=== PATIENT | female | born 1985 | race American Indian/Alaskan Native ===

== ENCOUNTER 2020-09-26 12:29 | Observation (INO) | payer SELFPAY ==
[2020-09-26] MEDS ORDERED: ACETAMINOPHEN 325 MG/10.15 ML ORAL LIQD UNIT DOSE ONE (13:30)
[2020-09-26] MEDS ORDERED: ACETAMINOPHEN 325 MG TAB PO ONE (13:31)
[2020-09-26] MEDS ORDERED: SODIUM CHLORIDE 0.9% 1000 ML 1,000 ML IV ONE ×2 (13:32→17:41)
--- NOTE | 2020-09-26 13:32 | Event Note ---
ED Screening Note Date of service: 09/26/20 Time: 13:31 ED Screening Note: Patient complains of body aches, fever, and shortness of breath-diagnosed with Covid 7 days ago Fever of 101.6 noted with tachycardia at 147 noted This initial assessment/diagnostic orders/clinical plan/treatment(s) is/are subject to change based on patients health status, clinical progression and re- assessment by fellow clinical providers in the ED. Further treatment and workup at subsequent clinical providers discretion. Patient/guardian urged not to elope from the ED as their condition may be serious if not clinically assessed and managed. Initial orders include: Labs Chest x-ray Tylenol
--- NOTE | 2020-09-26 14:27 | XRay Report ---
CHEST 2 VIEWS INDICATION / CLINICAL INFORMATION: Chest pain and shortness of breath. COVID positive. COMPARISON: None available. FINDINGS: SUPPORT DEVICES: None. HEART / MEDIASTINUM: The heart size and pulmonary vasculature are normal. LUNGS / PLEURA: There is moderate patchy subsegmental parenchymal disease in both lower lung zones. L heriberto volumes are mildly decreased. The upper lung zones are clear. No evidence of pleural effusion. No pneumothorax. ADDITIONAL FINDINGS: No significant additional findings. IMPRESSION: Moderate patchy subsegmental parenchymal disease in both lower lung zones may be related to subsegmental atelectasis or pneumonia. Signer Name: Jus Manuel MD Signed: 09/26/2020 2:23 PM Workstation Name: [id number]
[2020-09-26 14:32] LABS: Basophils % (Auto) 0.2 % (0.0-1.8); Hemoglobin 14.7 gm/dl (10.1-14.3); Lymphocytes # (Auto) 1.4 K/mm3 (1.2-5.4); Lymphocytes % (Auto) 20.4 % (13.4-35.0); Monocytes # (Auto) 0.4 K/mm3 (0.0-0.8); Monocytes % (Auto) 6.4 % (0.0-7.3)
[2020-09-26 14:42] LABS: Hematocrit 42.8 % (30.3-42.9); Mean Corpuscular HGB Conc 34 % (30-34); Mean Corpuscular Volume 90 fl (79-97); Platelet Count 164 K/mm3 (140-440); Red Blood Count 4.78 M/mm3 (3.65-5.03); Red Cell Distribution Width 11.7 % (13.2-15.2)
[2020-09-26 14:50] LABS: Alanine Aminotransferase 76 units/L (7-56); BUN/Creatinine Ratio 11; Blood Urea Nitrogen 10 mg/dL (7-17); Calcium 8.6 mg/dL (8.4-10.2); Hemolysis Index 5
[2020-09-26] MEDS ORDERED: AZITHROMYCIN 500 MG in SODIUM CHLORIDE 0.9% 250ML 250 ML IV ONE (17:16)
[2020-09-26] MEDS ORDERED: methylPREDNISolone Sod Succinate 125 MG/2 ML INJ IV ONE (17:16)
[2020-09-26] MEDS ORDERED: cefTRIAXone/NS 1 GM/50 ML 1 GM/50 ML BAG IV ONE (17:17)
--- NOTE | 2020-09-26 17:24 | Emergency Department Report ---
HPI - General Chief Complaint: Dyspnea/Respdistress Time Seen by Provider: 09/26/20 13:30 - HPI HPI: This is a 35-year-old -Thai female presents to the emergency department with a complaint of shortness of breath and a recent positive Covid test. 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 Initially the patient complained of some nausea with vomiting, chills, body aches and fatigue. She did not think that it was Covid at first but went to get tested anyways. The patient began having shortness of breath starting yesterday that worsens with exertion. She has also had a few days of high fevers. She denies any past medical history. She denies any tobacco or illicit drug use. ED Past Medical Hx - Social History Smoking Status: Never Smoker Substance Use Type: None ED Review of Systems ROS: Stated complaint: SOB Other details as noted in HPI Comment: All other systems reviewed and negative Constitutional: chills, fever Eyes: denies: eye pain, vision change ENT: denies: ear pain, throat pain Respiratory: shortness of breath, SOB with exertion Cardiovascular: denies: chest pain, edema Gastrointestinal: nausea, vomiting Genitourinary: denies: dysuria, discharge Musculoskeletal: myalgia. denies: joint swelling Skin: denies: rash, lesions Neurological: denies: numbness, paresthesias Physical Exam - Physical Exam Vital Signs: Vital Signs 09/26/20 13:26 Temperature 101.6 F H Pulse Rate 147 H Respiratory 26 H Rate Blood Pressure 133/87 O2 Sat by Pulse 95 Oximetry Physical Exam: GENERAL: The patient is well-developed well-nourished. HENT: Normocephalic. Atraumatic. Patient has moist mucous membranes. EYES: Extraocular motions are intact. NECK: Supple. Trachea is midline. CHEST/LUNGS: Rhonchi heard throughout the chest. There is some tachypnea with accessory muscle use. HEART/CARDIOVASCULAR: Regular. There is moderate tachycardia. There is no murmur. ABDOMEN: Abdomen is soft, nontender. Patient has normal bowel sounds. There is no abdominal distention. SKIN: Skin is warm and dry. NEURO: The patient is awake, alert, and oriented. The patient is cooperative. The patient has no focal neurologic deficits. Normal speech. MUSCULOSKELETAL: There is no tenderness or deformity. There is no limitation range of motion. ED Course Vital Signs 09/26/20 13:26 Temperature 101.6 F H Pulse Rate 147 H Respiratory 26 H Rate Blood Pressure 133/87 O2 Sat by Pulse 95 Oximetry ED Medical Decision Making - Lab Data Result diagrams: 09/26/20 14:08 09/26/20 14:08 - Radiology Data Radiology results: image reviewed interpreted by me: Chest x-ray shows bilateral patchy infiltrates to the mid to lower lung hinkle consistent with an atypical pneumonia. No pneumothorax. No rib fractures or bony abnormalities. - Medical Decision Making This patient presents to the emergency department with a 1 to 2-day history of shortness of breath after finding out she was Covid positive yesterday. Previous to this patient had some nausea without vomiting, chills, body aches, fatigue. Chest x-ray shows bilateral patchy infiltrates concerning for an atypical pneumonia and consistent with Covid. Patient's labs shows some mild hyperglycemia without signs of DKA. The patient also has some mild transaminitis. No leukocytosis. Patient was given IV fluid resuscitation, Solu-Medrol and IV antibiotics. The patient was taken off the supplemental oxygen and ambulated 200 feet before her oxygen saturation dropped down to 90% and the heart rate went up to 120 bpm. For this reason, the patient will be admitted to the hospital for COVID-19, hypoxia, bilateral pneumonia secondary to COVID-19. Further inflammatory markers and a coronavirus PCR test have been ordered. The patient will be pres ented to the nighttime hospitalist for admission. Critical Care Time: No Critical care attestation.: If time is entered above; I have spent that time in minutes in the direct care of this critically ill patient, excluding procedure time. ED Disposition Clinical Impression: COVID-19, Pneumonia due to COVID-19 virus, Hypoxemia Disposition: OP ADMIT IP TO THIS HOSP Is pt being admited?: Yes Condition: Fair Instructions: Bacterial Pneumonia (ED) Time of Disposition: 19:51
[2020-09-26 20:26] LABS: C-Reactive Protein 21.4 mg/dL (0.00-1.30)
[2020-09-27] MEDS ORDERED: ONDANSETRON 4 MG/2 ML INJ IV PRN (02:05)
[2020-09-27] MEDS ORDERED: HYDROmorphone 1 MG/1 ML INJ IV PRN (02:05)
[2020-09-27] MEDS ORDERED: oxyCODONE /ACETAMINOPHEN 5-325MG TAB PO PRN (02:05)
[2020-09-27] MEDS ORDERED: ACETAMINOPHEN 325 MG TAB PO PRN (02:05)
--- NOTE | 2020-09-27 02:23 | History and Physical Report ---
History of Present Illness Date of examination: 09/27/20 Date of admission: 09/27/20 00:27 Chief complaint: Shortness of breath for 2 days History of present illness: 35-year-old black female with no significant past medical history comes in for shortness of breath for 2 to 3 days. Patient apparently tested +3 days ago and an outside Covid testing center. Patient has some nausea vomiting chills body aches and fatigue. Also shortness of breath on walking. Shortness of breath since yesterday. Cough present. No fevers. No anosmia. Exposure to coronavirus present. In the emergency room patient saturations were dropping down to mid 80s on making her walk. Past Medical Hx None Past surgical history None Family history Htn - Social History Smoking Status: Never Smoker Substance Use Type: None Review of Systems ROS: Stated complaint: SOB Other details as noted in HPI Comment: All other systems reviewed and negative Constitutional: chills, fever Eyes: denies: eye pain, vision change ENT: denies: ear pain, throat pain Respiratory: shortness of breath, SOB with exertion Cardiovascular: denies: chest pain, edema Gastrointestinal: nausea, vomiting Genitourinary: denies: dysuria, discharge Musculoskeletal: myalgia. denies: joint swelling Skin: denies: rash, lesions Neurological: denies: numbness, paresthesias Medications and Allergies Allergies Allergy/AdvReac Type Severity Reaction Status Date / Time No Known Allergies Allergy Unverified 09/26/20 13:30 Active Meds: Active Medications Acetaminophen (Acetaminophen 325 Mg Tab) 650 mg PO Q4H PRN PRN Reason: Pain MILD(1-3)/Fever >100.5/FRAUSTO Famotidine (Famotidine 20 Mg Tab) 20 mg PO BID [facility] Hydromorphone HCl (Hydromorphone 1 Mg/1 Ml Inj) 0.5 mg IV Q3H PRN PRN Reason: Pain , Severe (7-10) Ondansetron HCl (Ondansetron 4 Mg/2 Ml Inj) 4 mg IV Q8H PRN PRN Reason: Nausea And Vomiting Oxycodone/Acetaminophen (Oxycodone /Acetaminophen 5-325mg Tab) 1 tab PO Q6H PRN PRN Reason: Pain, Moderate (4-6) Sodium Chloride (Sodium Chloride 0.9% 10 Ml Flush Syringe) 10 ml IV BID [facility] Sodium Chloride (Sodium Chloride 0.9% 10 Ml Flush Syringe) 10 ml IV PRN PRN PRN Reason: LINE FLUSH Exam - Constitutional Vitals: Temp Pulse Resp BP Pulse Ox 99.1 F 104 H 20 140/97 95 09/26/20 19:14 09/26/20 19:14 09/26/20 19:14 09/26/20 19:14 09/26/20 19:14 General appearance: Present: no acute distress, well-nourished - EENT Eyes: Present: PERRL ENT: hearing intact, clear oral mucosa - Neck Neck: Present: supple, normal ROM - Respiratory Respiratory effort: normal Respiratory: bilateral: CTA - Cardiovascular Heart rate: 78 Rhythm: regular Heart Sounds: Present: S1 & S2. Absent: rub, click - Extremities Extremities: pulses symmetrical, No edema Peripheral Pulses: within normal limits - Abdominal General gastrointestinal: Present: soft, non-tender, non-distended, normal bowel sounds Female genitourinary: Present: normal - Integumentary Integumentary: Present: clear, warm, dry - Musculoskeletal Musculoskeletal: gait normal, strength equal bilaterally - Psychiatric Psychiatric: appropriate mood/affect, intact judgment & insight - Neurologic Neurologic: CNII-XII intact, moves all extremities - Allied Health Allied health notes reviewed: nursing, case management Results - Labs CBC & Chem 7: 09/26/20 14:08 09/26/20 14:08 Labs: Laboratory Last Values WBC 6.8 K/mm3 (4.5-11.0) 09/26/20 14:08 RBC 4.78 M/mm3 (3.65-5.03) 09/26/20 14:08 Hgb 14.7 gm/dl (10.1-14.3) H 09/26/20 14:08 Hct 42.8 % (30.3-42.9) 09/26/20 14:08 MCV 90 fl (79-97) 09/26/20 14:08 MCH 31 pg (28-32) 09/26/20 14:08 MCHC 34 % (30-34) 09/26/20 14:08 RDW 11.7 % (13.2-15.2) L 09/26/20 14:08 Plt Count 164 K/mm3 (140-440) 09/26/20 14:08 Lymph % (Auto) 20.4 % (13.4-35.0) 09/26/20 14:08 [place] % (Auto) 6.4 % (0.0-7.3) 09/26/20 14:08 Eos % (Auto) 0.0 % (0.0-4.3) 09/26/20 14:08 Baso % (Auto) 0.2 % (0.0-1.8) 09/26/20 14:08 Lymph # (Auto) 1.4 K/mm3 (1.2-5.4) 09/26/20 14:08 [place] # (Auto) 0.4 K/mm3 (0.0-0.8) 09/26/20 14:08 Eos # (Auto) 0.0 K/mm3 (0.0-0.4) 09/26/20 14:08 Baso # (Auto) 0.0 K/mm3 (0.0-0.1) 09/26/20 14:08 Seg Neutrophils % 73.0 % (40.0-70.0) H 09/26/20 14:08 Seg Neutrophils # 5.0 K/mm3 (1.8-7.7) 09/26/20 14:08 D-Dimer 241.31 ng/mlDDU (0-234) H 09/26/20 19:38 Sodium 130 mmol/L (137-145) L 09/26/20 14:08 Potassium 4.6 mmol/L (3.6-5.0) 09/26/20 14:08 Chloride 95.3 mmol/L (98-107) L 09/26/20 14:08 Carbon Dioxide 22 mmol/L (22-30) 09/26/20 14:08 Anion Gap 17 mmol/L 09/26/20 14:08 BUN 10 mg/dL (7-17) 09/26/20 14:08 Creatinine 0.9 mg/dL (0.6-1.2) 09/26/20 14:08 Estimated GFR > 60 ml/min 09/26/20 14:08 BUN/Creatinine Ratio 11 % 09/26/20 14:08 Glucose 235 mg/dL (65-100) H 09/26/20 14:08 Lactic Acid 2.20 mmol/L (0.7-2.0) H* 09/26/20 15:50 Calcium 8.6 mg/dL (8.4-10.2) 09/26/20 14:08 Ferritin 519.7 ng/mL (10.0-200.0) H 09/26/20 19:38 Total Bilirubin 0.60 mg/dL (0.1-1.2) 09/26/20 14:08 AST 94 units/L (5-40) H 09/26/20 14:08 ALT 76 units/L (7-56) H 09/26/20 14:08 Alkaline Phosphatase 66 units/L (35-129) 09/26/20 14:08 Lactate Dehydrogenase 529 units/L (91-180) H 09/26/20 19:38 C-Reactive Protein 21.40 mg/dL (0.00-1.30) H 09/26/20 19:38 Total Protein 8.0 g/dL (6.3-8.2) 09/26/20 14:08 Albumin 3.0 g/dL (3.9-5) L 09/26/20 14:08 Albumin/Globulin Ratio 0.6 % 09/26/20 14:08 - Imaging and Cardiology Chest x-ray: report reviewed Imaging and Cardiology: Chest x-ray LUNGS / PLEURA: There is moderate patchy subsegmental parenchymal disease in both lower lung zones. Lung volumes are mildly decreased. The upper lung zones are clear. No evidence of pleural effusion. No pneumothorax. ADDITIONAL FINDINGS: No significant additional findings. IMPRESSION: Moderate patchy subsegmental parenchymal disease in both lower lung zones may be related to subsegmental atelectasis or pneumonia. Assessment and Plan Advance Directives: Yes (Full code) Plan of care discussed with patient/family: Yes - Patient Problems (1) Acute respiratory failure with hypoxia Current Visit: Yes Status: Acute Plan to address problem: Oxygen supplementation as needed BiPAP if necessary Respiratory isolation (2) Bilateral pneumonia Current Visit: Yes Status: Acute Plan to address problem: Patient started on ceftriaxone and azithromycin (3) Pneumonia due to COVID-19 virus Current Visit: Yes Status: Acute Plan to address problem: Covid protocol IV dexamethasone Vitamin D Vitamin C Zinc ID consult Ambulatory oxygen saturation levels every day\ Will defer regarding remdesivir to ID (4) Elevated lactic acid level Current Visit: Yes Status: Acute Plan to address problem: Progress sepsis We will monitor lactic acid level (5) Hyponatremia Current Visit: Yes Status: Acute Plan to address problem: Patient given IV normal saline in the emergency room Will avoid any IV fluids for now Recheck BMP (6) Hyperglycemia Current Visit: Yes Status: Acute Plan to address problem: Patient does not have a history of diabetes Check hemoglobin A1c Accu-Cheks and coverage Patient may need to be hyper hypoglycemics at the time of discharge (7) Malnutrition Current Visit: Yes Status: Acute Plan to address problem: Dietary supplements (8) DVT prophylaxis Current Visit: Yes Status: Acute Plan to address problem: On Lovenox and GI prophylaxis
[2020-09-27] MEDS: dexAMETHasone 4 MG/ML VIAL IV SCH ×2 (05:25→11:12)
[2020-09-27] MEDS: ASCORBIC ACID 500 MG TAB PO SCH ×3 (05:26→21:29)
[2020-09-27] MEDS: ZINC SULFATE 220 MG CAP PO SCH ×3 (05:26→21:29)
[2020-09-27] MEDS: INSULIN LISPRO 100 UNIT/ML VIAL 3 mL SUB-Q SCH ×4 (08:00→23:54)
--- NOTE | 2020-09-27 09:58 | Progress Note ---
Assessment and Plan Assessment and plan: Acute respiratory failure with hypoxia Oxygen supplementation as needed BiPAP if necessary Respiratory isolation Bilateral pneumonia Patient started on ceftriaxone and azithromycin Pneumonia due to COVID-19 virus Covid protocol IV dexamethasone Vitamin D Vitamin C Zinc ID consulted Ambulatory oxygen saturation levels daily Will defer regarding remdesivir to ID Elevated lactic acid level Etiology secondary to sepsis We will monitor lactic acid level Hyponatremia Patient given IV normal saline in the emergency room Will avoid any IV fluids for now Recheck BMP Hyperglycemia Patient does not have a history of diabetes Check hemoglobin A1c Accu-Cheks and coverage Malnutrition Dietary supplements DVT prophylaxis On Lovenox and GI prophylaxis 09/27/2020. Follow-up ID recommendations. Continue IV dexamethasone. Continue Covid 19 isolation protocols. Continue Lovenox for anticoagulation. Follow-up inflammatory markers. History Interval history: no new issues Hospitalist Physical - Constitutional Vitals: Temp Pulse Resp BP Pulse Ox 98.4 F 102 H 18 130/76 91 09/27/20 06:30 09/27/20 06:30 09/27/20 06:30 09/27/20 06:30 09/27/20 06:30 General appearance: Present: no acute distress, well-nourished - EENT Eyes: Present: PERRL, EOM intact ENT: hearing intact, clear oral mucosa, dentition normal - Neck Neck: Present: supple, normal ROM - Respiratory Respiratory effort: normal Respiratory: bilateral: CTA - Cardiovascular Rhythm: regular Heart Sounds: Present: S1 & S2. Absent: gallop, rub - Extremities Extremities: no ischemia, No edema, Full ROM - Abdominal General gastrointestinal: soft, non-tender, non-distended, normal bowel sounds - Integumentary Integumentary: Present: clear, warm, dry - Neurologic Neurologic: CNII-XII intact, moves all extremities Results - Labs CBC & Chem 7: 09/26/20 14:08 09/26/20 14:08 Labs: Laboratory Last Values WBC 6.8 K/mm3 (4.5-11.0) 09/26/20 14:08 RBC 4.78 M/mm3 (3.65-5.03) 09/26/20 14:08 Hgb 14.7 gm/dl (10.1-14.3) H 09/26/20 14:08 Hct 42.8 % (30.3-42.9) 09/26/20 14:08 MCV 90 fl (79-97) 09/26/20 14:08 MCH 31 pg (28-32) 09/26/20 14:08 MCHC 34 % (30-34) 09/26/20 14:08 RDW 11.7 % (13.2-15.2) L 09/26/20 14:08 Plt Count 164 K/mm3 (140-440) 09/26/20 14:08 Lymph % (Auto) 20.4 % (13.4-35.0) 09/26/20 14:08 [place] % (Auto) 6.4 % (0.0-7.3) 09/26/20 14:08 Eos % (Auto) 0.0 % (0.0-4.3) 09/26/20 14:08 Baso % (Auto) 0.2 % (0.0-1.8) 09/26/20 14:08 Lymph # (Auto) 1.4 K/mm3 (1.2-5.4) 09/26/20 14:08 [place] # (Auto) 0.4 K/mm3 (0.0-0.8) 09/26/20 14:08 Eos # (Auto) 0.0 K/mm3 (0.0-0.4) 09/26/20 14:08 Baso # (Auto) 0.0 K/mm3 (0.0-0.1) 09/26/20 14:08 Seg Neutrophils % 73.0 % (40.0-70.0) H 09/26/20 14:08 Seg Neutrophils # 5.0 K/mm3 (1.8-7.7) 09/26/20 14:08 D-Dimer 241.31 ng/mlDDU (0-234) H 09/26/20 19:38 Sodium 130 mmol/L (137-145) L 09/26/20 14:08 Potassium 4.6 mmol/L (3.6-5.0) 09/26/20 14:08 Chloride 95.3 mmol/L (98-107) L 09/26/20 14:08 Carbon Dioxide 22 mmol/L (22-30) 09/26/20 14:08 Anion Gap 17 mmol/L 09/26/20 14:08 BUN 10 mg/dL (7-17) 09/26/20 14:08 Creatinine 0.9 mg/dL (0.6-1.2) 09/26/20 14:08 Estimated GFR > 60 ml/min 09/26/20 14:08 BUN/Creatinine Ratio 11 % 09/26/20 14:08 Glucose 235 mg/dL (65-100) H 09/26/20 14:08 Lactic Acid 2.20 mmol/L (0.7-2.0) H* 09/26/20 15:50 Calcium 8.6 mg/dL (8.4-10.2) 09/26/20 14:08 Ferritin 519.7 ng/mL (10.0-200.0) H 09/26/20 19:38 Total Bilirubin 0.60 mg/dL (0.1-1.2) 09/26/20 14:08 AST 94 units/L (5-40) H 09/26/20 14:08 ALT 76 units/L (7-56) H 09/26/20 14:08 Alkaline Phosphatase 66 units/L (35-129) 09/26/20 14:08 Lactate Dehydrogenase 529 units/L (91-180) H 09/26/20 19:38 C-Reactive Protein 21.40 mg/dL (0.00-1.30) H 09/26/20 19:38 Total Protein 8.0 g/dL (6.3-8.2) 09/26/20 14:08 Albumin 3.0 g/dL (3.9-5) L 09/26/20 14:08 Albumin/Globulin Ratio 0.6 % 09/26/20 14:08 Active Medications - Current Medications Current Medications: Generic Name Dose Route Start Last Admin Trade Name Freq PRN Reason Stop Dose Admin Acetaminophen 650 mg 09/27/20 02:05 Acetaminophen 325 Mg Tab PO Q4H PRN Pain MILD(1-3)/Fever >100.5/FRAUSTO Ascorbic Acid 1,000 mg 09/27/20 03:00 09/27/20 05:26 Ascorbic Acid 500 Mg Tab PO 1,000 mg BID ELDA Administration Cholecalciferol 5,000 unit 09/27/20 10:00 Cholecalciferol (Vit D3) 5,000 Unit Tab PO DAILY ELDA Dexamethasone 8 mg 09/27/20 03:00 09/27/20 05:25 Dexamethasone 4 Mg/Ml Vial IV 8 mg Q24HR ELDA Administration Enoxaparin Sodium 40 mg 09/27/20 22:00 Enoxaparin 40 Mg/0.4 Ml Inj SUB-Q QDAY@2200 [facility] Protocol Famotidine 20 mg 09/27/20 10:00 Famotidine 20 Mg Tab PO BID [facility] Hydromorphone HCl 0.5 mg 09/27/20 02:05 Hydromorphone 1 Mg/1 Ml Inj IV Q3H PRN Pain , Severe (7-10) Azithromycin 500 mg/ Sodium 250 mls @ 250 mls/hr 09/27/20 10:00 Chloride IV Q24HR [facility] Protocol Ceftriaxone Sodium 2 gm in 100 mls @ 200 mls/hr 09/27/20 10:00 Rocephin/Ns 2 Gm/100 Ml IV Q24HR [facility] Protocol Insulin Human Lispro 0 unit 09/27/20 07:30 Insulin Lispro 100 Unit/Ml Vial 3 Ml SUB-Q ACHS [facility] Protocol Ondansetron HCl 4 mg 09/27/20 02:05 Ondansetron 4 Mg/2 Ml Inj IV Q8H PRN Nausea And Vomiting Oxycodone/Acetaminophen 1 tab 09/27/20 02:05 Oxycodone /Acetaminophen 5-325mg Tab PO Q6H PRN Pain, Moderate (4-6) Sodium Chloride 10 ml 09/27/20 10:00 Sodium Chloride 0.9% 10 Ml Flush Syringe IV BID [facility]DA Sodium Chloride 10 ml 09/27/20 02:05 Sodium Chloride 0.9% 10 Ml Flush Syringe IV PRN PRN LINE FLUSH Zinc Sulfate 220 mg 09/27/20 03:00 09/27/20 05:26 Zinc Sulfate 220 Mg Cap PO 220 mg BID ELDA Administration
[2020-09-27 10:52] LABS: C-Reactive Protein 15.6 mg/dL (0.00-1.30)
[2020-09-27] MEDS: AZITHROMYCIN 500 MG in SODIUM CHLORIDE 0.9% 250ML 250 ML IV SCH (11:08)
[2020-09-27] MEDS: CHOLECALCIFEROL (VIT D3) 5,000 UNIT TAB PO SCH (11:09)
[2020-09-27] MEDS: FAMOTIDINE 20 MG TAB PO SCH ×2 (11:09→21:30)
[2020-09-27] MEDS: cefTRIAXone/NS 2 GM/100 ML 2 GM/100 ML BAG IV SCH (11:09)
[2020-09-27] MEDS: ENOXAPARIN 40 MG/0.4 ML INJ SUB-Q SCH ×2 (21:30→21:35)
--- NOTE | 2020-09-28 08:53 | Progress Note ---
Assessment and Plan Assessment and plan: Acute respiratory failure with hypoxia Oxygen supplementation as needed BiPAP if necessary Respiratory isolation Bilateral pneumonia Patient started on ceftriaxone and azithromycin Pneumonia due to COVID-19 virus Covid protocol IV dexamethasone Vitamin D Vitamin C Zinc ID consulted Ambulatory oxygen saturation levels daily Will defer regarding remdesivir to ID Elevated lactic acid level Etiology secondary to sepsis We will monitor lactic acid level Hyponatremia Patient given IV normal saline in the emergency room Will avoid any IV fluids for now Recheck BMP Hyperglycemia Patient does not have a history of diabetes Check hemoglobin A1c Accu-Cheks and coverage Malnutrition Dietary supplements DVT prophylaxis On Lovenox and GI prophylaxis 09/27/2020. Follow-up ID recommendations. Continue IV dexamethasone. Continue Covid 19 isolation protocols. Continue Lovenox for anticoagulation. Follow-up inflammatory markers. 09/28/2020. Inflammatory markers mildly elevated with D-dimer 289, ferritin 575, LDH 369 and CRP 15.6. Check exercise pulse oximetry and if normal will likely discharge home today. Elevated BG likely related to steroid. However, patient may have underlying diabetes mellitus type 2. Check hemoglobin A1c History Interval history: no new issues Hospitalist Physical - Constitutional Vitals: Temp Pulse Resp BP Pulse Ox 98.9 F 72 18 158/92 93 09/28/20 05:22 09/28/20 05:22 09/28/20 05:22 09/28/20 05:22 09/28/20 05:22 General appearance: Present: no acute distress, well-nourished - EENT Eyes: Present: PERRL, EOM intact ENT: hearing intact, clear oral mucosa, dentition normal - Neck Neck: Present: supple, normal ROM - Respiratory Respiratory effort: normal Respiratory: bilateral: CTA - Cardiovascular Rhythm: regular Heart Sounds: Present: S1 & S2. Absent: gallop, rub - Extremities Extremities: no ischemia, No edema, Full ROM - Abdominal General gastrointestinal: soft, non-tender, non-distended, normal bowel sounds - Integumentary Integumentary: Present: clear, warm, dry - Neurologic Neurologic: CNII-XII intact, moves all extremities Results - Labs CBC & Chem 7: 09/26/20 14:08 09/26/20 14:08 Labs: Laboratory Last Values WBC 6.8 K/mm3 (4.5-11.0) 09/26/20 14:08 RBC 4.78 M/mm3 (3.65-5.03) 09/26/20 14:08 Hgb 14.7 gm/dl (10.1-14.3) H 09/26/20 14:08 Hct 42.8 % (30.3-42.9) 09/26/20 14:08 MCV 90 fl (79-97) 09/26/20 14:08 MCH 31 pg (28-32) 09/26/20 14:08 MCHC 34 % (30-34) 09/26/20 14:08 RDW 11.7 % (13.2-15.2) L 09/26/20 14:08 Plt Count 164 K/mm3 (140-440) 09/26/20 14:08 Lymph % (Auto) 20.4 % (13.4-35.0) 09/26/20 14:08 [place] % (Auto) 6.4 % (0.0-7.3) 09/26/20 14:08 Eos % (Auto) 0.0 % (0.0-4.3) 09/26/20 14:08 Baso % (Auto) 0.2 % (0.0-1.8) 09/26/20 14:08 Lymph # (Auto) 1.4 K/mm3 (1.2-5.4) 09/26/20 14:08 [place] # (Auto) 0.4 K/mm3 (0.0-0.8) 09/26/20 14:08 Eos # (Auto) 0.0 K/mm3 (0.0-0.4) 09/26/20 14:08 Baso # (Auto) 0.0 K/mm3 (0.0-0.1) 09/26/20 14:08 Seg Neutrophils % 73.0 % (40.0-70.0) H 09/26/20 14:08 Seg Neutrophils # 5.0 K/mm3 (1.8-7.7) 09/26/20 14:08 D-Dimer 289.00 ng/mlDDU (0-234) H 09/27/20 10:02 Sodium 130 mmol/L (137-145) L 09/26/20 14:08 Potassium 4.6 mmol/L (3.6-5.0) 09/26/20 14:08 Chloride 95.3 mmol/L (98-107) L 09/26/20 14:08 Carbon Dioxide 22 mmol/L (22-30) 09/26/20 14:08 Anion Gap 17 mmol/L 09/26/20 14:08 BUN 10 mg/dL (7-17) 09/26/20 14:08 Creatinine 0.9 mg/dL (0.6-1.2) 09/26/20 14:08 Estimated GFR > 60 ml/min 09/26/20 14:08 BUN/Creatinine Ratio 11 % 09/26/20 14:08 Glucose 235 mg/dL (65-100) H 09/26/20 14:08 POC Glucose 395 mg/dL (70-105) H 09/28/20 07:38 Hemoglobin A1c 9.9 % (4-6) H 09/27/20 10:02 Lactic Acid 2.20 mmol/L (0.7-2.0) H* 09/26/20 15:50 Calcium 8.6 mg/dL (8.4-10.2) 09/26/20 14:08 Ferritin 575.2 ng/mL (10.0-200.0) H 09/27/20 10:02 Total Bilirubin 0.60 mg/dL (0.1-1.2) 09/26/20 14:08 AST 94 units/L (5-40) H 09/26/20 14:08 ALT 76 units/L (7-56) H 09/26/20 14:08 Alkaline Phosphatase 66 units/L (35-129) 09/26/20 14:08 Lactate Dehydrogenase 369 units/L (91-180) H 09/27/20 10:02 C-Reactive Protein 15.60 mg/dL (0.00-1.30) H 09/27/20 10:02 Total Protein 8.0 g/dL (6.3-8.2) 09/26/20 14:08 Albumin 3.0 g/dL (3.9-5) L 09/26/20 14:08 Albumin/Globulin Ratio 0.6 % 09/26/20 14:08 Procalcitonin 3.28 ng/mL (<0.15) 09/26/20 19:38 Coronavirus (PCR) Positive (Negative) A 09/26/20 Unknown Lemos/IV: Voiding Method Toilet IV Catheter Type [Right INT / Saline Lock Antecubital] Active Medications - Current Medications Current Medications: Generic Name Dose Route Start Last Admin Trade Name Freq PRN Reason Stop Dose Admin Acetaminophen 650 mg 09/27/20 02:05 Acetaminophen 325 Mg Tab PO Q4H PRN Pain MILD(1-3)/Fever >100.5/FRAUSTO Ascorbic Acid 1,000 mg 09/27/20 03:00 09/27/20 21:29 Ascorbic Acid 500 Mg Tab PO 1,000 mg BID ELDA Administration Cholecalciferol 5,000 unit 09/27/20 10:00 09/27/20 11:09 Cholecalciferol (Vit D3) 5,000 Unit Tab PO 5,000 unit DAILY ELDA Administration Dexamethasone 8 mg 09/27/20 03:00 09/27/20 11:12 Dexamethasone 4 Mg/Ml Vial IV 8 mg Q24HR ELDA Administration Enoxaparin Sodium 40 mg 09/27/20 22:00 09/27/20 21:35 Enoxaparin 40 Mg/0.4 Ml Inj SUB-Q Not Given QDAY@2200 [facility] Protocol Famotidine 20 mg 09/27/20 10:00 09/27/20 21:30 Famotidine 20 Mg Tab PO 20 mg BID ELDA Administration Hydromorphone HCl 0.5 mg 09/27/20 02:05 Hydromorphone 1 Mg/1 Ml Inj IV Q3H PRN Pain , Severe (7-10) Azithromycin 500 mg/ Sodium 250 mls @ 250 mls/hr 09/27/20 10:00 09/27/20 11:08 Chloride IV 250 mls/hr Q24HR [facility] Administration Protocol Ceftriaxone Sodium 2 gm in 100 mls @ 200 mls/hr 09/27/20 10:00 09/27/20 11:09 Rocephin/Ns 2 Gm/100 Ml IV 200 mls/hr Q24HR [facility] Administration Protocol Insulin Human Lispro 0 unit 09/27/20 07:30 09/27/20 23:54 Insulin Lispro 100 Unit/Ml Vial 3 Ml SUB-Q 8 unit ACHS ELDA Administration Protocol Ondansetron HCl 4 mg 09/27/20 02:05 Ondansetron 4 Mg/2 Ml Inj IV Q8H PRN Nausea And Vomiting Oxycodone/Acetaminophen 1 tab 09/27/20 02:05 Oxycodone /Acetaminophen 5-325mg Tab PO Q6H PRN Pain, Moderate (4-6) Sodium Chloride 10 ml 09/27/20 10:00 09/27/20 21:30 Sodium Chloride 0.9% 10 Ml Flush Syringe IV 10 ml BID ELDA Administration Sodium Chloride 10 ml 09/27/20 02:05 Sodium Chloride 0.9% 10 Ml Flush Syringe IV PRN PRN LINE FLUSH Zinc Sulfate 220 mg 09/27/20 03:00 09/27/20 21:29 Zinc Sulfate 220 Mg Cap PO 220 mg BID ELDA Administration Nutrition/Malnutrition Assess - Dietary Evaluation Nutrition/Malnutrition Findings: Nutrition Notes Start: 09/27/20 10:28 Freq: Status: Active Protocol: Document 09/27/20 10:28 ANAYA (Rec: 09/27/20 10:35 [email or web address]) Nutrition Notes Need for Assessment generated from: MD Order Initial or Follow up Assessment Other Pertinent Diagnosis Acute respiratory failure, COVID(+) , pneumonia Current Diet Regular Labs/Tests 09/26 Na 130 BG 235 Pertinent Medications Zinc Vitamin C Decadron Height 5 ft 5 in Weight 104.326 kg Usual Body Weight 102.27 kg Stanley Body Weight (kg) 56.81 BMI 38.2 Intake Prior to Admission Poor Weight Status Morbidly Obese Subjective/Other Information MD order for ONS. 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 Pt reports no weight loss. Pt reports eating 25% of meals since being in the hospital. Burn Absent Trauma Absent GI Symptoms None Current % PO Poor (25-49%) Minimum of two criteria No physical signs of malnutrition Energy Intake (non-severe) <75% Estimated Energy Requirement >7 days #1 Nutrition Diagnosis Inadequate energy intake Etiology COVID As Evidenced by Signs and Symptoms pt eating 25% of meals Is patient on ventilator? No Is Patient Ambulatory and/or Out of Bed Yes REE-([place]. Jeor-ambulatory/OOB) [ 7993.882 NUTR.[id number]] Kcal/Kg value to use for calculation 17 Approximate Energy Requirements Using 1774 kcal/Kg Calculation Used for Recommendations Kcal/kg Additional Notes Pro: 65-81g (0.8-1g/kg AdjBW 80.5kg) Fluid: 1ml/kcal Nutrition Intervention Change Diet Order: Continue Add Supplement/Snack (indicate name/kcal Ensure HP TID /protein ) Provides kCal: 480 Provides Protein (gm) 48 Goal #1 Meet at least 75% of protein and energy needs via PO and ONS intakes Anticipated Discharge Needs: Regular Follow-Up By: 09/30/20 Additional Comments FU for intakes, BG labs
[2020-09-28] MEDS: INSULIN LISPRO 100 UNIT/ML VIAL 3 mL SUB-Q SCH ×2 (08:54→11:43)
--- NOTE | 2020-09-28 08:59 | Discharge Summary ---
Providers - Providers Date of Admission: 09/27/20 00:27 Date of discharge: 09/28/20 Attending physician: MADHU KLINE Primary care physician: [facility] Hospitalization Reason for admission: covid Condition: Fair Hospital course: 35-year-old black female with no significant past medical history comes in for shortness of breath for 2 to 3 days. Patient apparently tested +3 days [employer] at an outside Covid testing center. Patient also reported cough and dyspnea on exertion. In the emergency department, patient was noted to have saturations in the mid 80s. The patient was admitted with diagnosis of acute hypoxic respiratory failure, bilateral Covid pneumonia, sepsis, lactic acidosis, hyponatremia and hyperglycemia. Discharge diagnosis the same with the addition of type 2 diabetes mellitus. Hemoglobin A1c was found to be 9.9. Inflammatory markers were obtained and were not significantly elevated. Follow-up Covid testing was confirmed on 09/26/2020. Hospital course: Acute respiratory failure with hypoxia Oxygen supplementation as needed BiPAP if necessary Respiratory isolation Bilateral pneumonia Patient started on ceftriaxone and azithromycin Pneumonia due to COVID-19 virus Covid protocol IV dexamethasone Vitamin D Vitamin C Zinc ID consulted Ambulatory oxygen saturation levels daily Will defer regarding remdesivir to ID Elevated lactic acid level Etiology secondary to sepsis We will monitor lactic acid level Hyponatremia Patient given IV normal saline in the emergency room Will avoid any IV fluids for now Recheck BMP Hyperglycemia Patient does not have a history of diabetes Check hemoglobin A1c Accu-Cheks and coverage Malnutrition Dietary supplements DVT prophylaxis On Lovenox and GI prophylaxis 09/27/2020. Follow-up ID recommendations. Continue IV dexamethasone. Continue Covid 19 isolation protocols. Continue Lovenox for anticoagulation. Follow-up inflammatory markers. 09/28/2020. Inflammatory markers mildly elevated with D-dimer 289, ferritin 575, LDH 369 and CRP 15.6. Check exercise pulse oximetry and if normal will likely discharge home today. Elevated BG likely related to steroid. However, patient may have underlying diabetes mellitus type 2. Check hemoglobin A1c Disposition: DC- TO HOME OR SELFCARE Core Measure Documentation - Palliative Care Palliative Care/ Comfort Measures: Not Applicable - Core Measures Any of the following diagnoses?: none Exam - Constitutional Vitals: Temp Pulse Resp BP Pulse Ox 98.9 F 72 18 158/92 93 09/28/20 05:22 09/28/20 05:22 09/28/20 05:22 09/28/20 05:22 09/28/20 05:22 General appearance: Present: no acute distress, well-nourished - EENT Eyes: Present: PERRL ENT: hearing intact, clear oral mucosa - Neck Neck: Present: supple, normal ROM - Respiratory Respiratory effort: normal Respiratory: bilateral: CTA - Cardiovascular Heart Sounds: Present: S1 & S2. Absent: rub, click - Extremities Extremities: pulses symmetrical, No edema Peripheral Pulses: within normal limits - Abdominal General gastrointestinal: Present: soft, non-tender, non-distended, normal bowel sounds Female genitourinary: Present: normal - Integumentary Integumentary: Present: clear, warm, dry - Musculoskeletal Musculoskeletal: gait normal, strength equal bilaterally - Psychiatric Psychiatric: appropriate mood/affect, intact judgment & insight - Neurologic Neurologic: CNII-XII intact, moves all extremities Plan Activity: advance as tolerated Weight Bearing Status: Weight Bear as Tolerated Diet: diabetic Follow up with: BRIAN BERNARD MD [Staff Physician] - 7 Days PRIMARY CARE, [Primary Care Provider] - 7 Days Forms: Work/School Release Form Prescriptions: dexAMETHasone [Dexamethasone] 6 mg PO DAILY #10 tablet metFORMIN [Glucophage] 500 mg PO BIDDIAB #60 tablet
[2020-09-28] MEDS: FAMOTIDINE 20 MG TAB PO SCH (09:02)
[2020-09-28] MEDS: ASCORBIC ACID 500 MG TAB PO SCH (09:02)
[2020-09-28] MEDS: CHOLECALCIFEROL (VIT D3) 5,000 UNIT TAB PO SCH (09:03)
[2020-09-28] MEDS: dexAMETHasone 4 MG/ML VIAL IV SCH (09:03)
[2020-09-28] MEDS: ZINC SULFATE 220 MG CAP PO SCH (09:03)
[2020-09-28] MEDS: cefTRIAXone/NS 2 GM/100 ML 2 GM/100 ML BAG IV SCH (09:03)
[2020-09-28 09:18] LABS: Basophils % (Auto) 0.1 % (0.0-1.8); Hemoglobin 12.9 gm/dl (10.1-14.3); Lymphocytes # (Auto) 1.1 K/mm3 (1.2-5.4); Lymphocytes % (Auto) 14.5 % (13.4-35.0); Mean Corpuscular HGB Conc 34 % (30-34); Mean Corpuscular Volume 92 fl (79-97); Monocytes # (Auto) 0.3 K/mm3 (0.0-0.8); Monocytes % (Auto) 4.1 % (0.0-7.3); Platelet Count 264 K/mm3 (140-440); Red Blood Count 4.15 M/mm3 (3.65-5.03); Red Cell Distribution Width 11.4 % (13.2-15.2)
[2020-09-28 09:26] LABS: Alanine Aminotransferase 80 units/L (7-56); Albumin 2.9 g/dL (3.9-5); BUN/Creatinine Ratio 25; Blood Urea Nitrogen 25 mg/dL (7-17); Calcium 8.7 mg/dL (8.4-10.2); Hemolysis Index 2
[2020-09-28] MEDS: AZITHROMYCIN 500 MG in SODIUM CHLORIDE 0.9% 250ML 250 ML IV SCH (11:42)
[2020-09-28 13:33] VITALS: BP 153/102
[2020-09-28] MEDS ORDERED: metFORMIN 500 MG TAB PO SCH (17:00)
== END 2020-09-28 16:25 | disposition home or self-care (01) ==
LOC: ED 12:29 → 3A 09-27 00:27
PROVIDERS: ADMIT Internal Medicine; ATTEND Hospitalist
DX: U07.1 COVID-19 (principal); J96.01 Acute respiratory failure with hypoxia; J12.89 Other viral pneumonia; R74.02 Elevation of levels of lactic acid dehydrogenase [LDH]; E87.1 Hypo-osmolality and hyponatremia; R73.9 Hyperglycemia, unspecified; E46 Unspecified protein-calorie malnutrition; Z68.38 Body mass index [BMI] 38.0-38.9, adult
CPT/HCPCS: 36415; 71046; 80053; 82140; 82728; 82962; 83036; 83615; 84145; 85025; 85379; 86140; 96361; 96365; 96366; 96367; 96372; 96375; 96376; 99284; G0378; J0456; J0696; J1100; J2930; J7030; J7050; U0003; J1650